=== PATIENT | female | born 1955 | race Two or more races ===

== ENCOUNTER 2020-07-04 13:21 | Outpatient (CLI) | payer MEDICARE | END 2020-07-04 23:59 | disposition home or self-care (01) | LOC: MSC 13:21 | PROVIDERS: ATTEND Internal Medicine | DX: L40.50 Arthropathic psoriasis, unspecified (principal); J45.909 Unspecified asthma, uncomplicated; I10 Essential (primary) hypertension; M48.00 Spinal stenosis, site unspecified; K22.0 Achalasia of cardia; Z96.659 Presence of unspecified artificial knee joint; Z79.891 Long term (current) use of opiate analgesic; Z79.899 Other long term (current) drug therapy ==

== ENCOUNTER 2020-10-21 13:04 | Outpatient (CLI) | payer MEDICARE | END 2020-10-21 23:59 | disposition home or self-care (01) | LOC: MSC 13:04 | PROVIDERS: ATTEND Internal Medicine | DX: J45.909 Unspecified asthma, uncomplicated (principal); L40.50 Arthropathic psoriasis, unspecified; I10 Essential (primary) hypertension; M48.00 Spinal stenosis, site unspecified; Z96.659 Presence of unspecified artificial knee joint; Z98.890 Other specified postprocedural states; K22.0 Achalasia of cardia; L40.9 Psoriasis, unspecified; Z79.52 Long term (current) use of systemic steroids; Z79.899 Other long term (current) drug therapy ==